=== PATIENT | male | born 1995 | race Caucasian/White ===

== ENCOUNTER 2016-12-12 22:44 | Emergency (ER) | payer BC ==
[~2016-12-12] VITALS: Ht 182.9 cm; Wt 95.2 kg
[2016-12-12 22:47] VITALS: TEMP 36.9; Ht 182.9 cm; Wt 95.2 kg
--- NOTE | 2016-12-13 00:10 | EMERGENCY ROOM VISIT NOTE ---
History Report prepared by Yana: Tony Mixon Under the Supervision of: Dr. Mary Grace Bravo D.O. First contact with patient: 23:19 Chief Complaint: MENTAL HEALTH EVALUATION Stated Complaint: DEPRESSION,OBSERVATION REQUIRED BY MISSING PERSONS History of Present Illness The patient is a 21 year old male who presents to the Emergency Room with complaints of depression. The patient complains of feeling anxious this morning after getting a bill concerning student loans. The patient notes that a few months ago he had suicidal ideation and started a note on his cell phone. The patient has been adding and editing this note for the past few months. He was feeling antsy yesterday and added more to the note. He sent a picture of the note to his mother today. The patient's mother was worried and could not get into contact with the patient and did not know where he was so she reached out to missing persons. Per patient's aunt, the patient's mother was surprised about the patient's note that mentioned suicidal ideation. She had not known about the patient's depression. The patient notes that he felt he needed to get away from people today [place] around [place] for most of the day. The patient denies medications, drug use, or recent alcohol in the past two weeks. The patient has not seen a counselor recently. Source of History: patient, family Onset: today Position: other (global) Timing: worsening, other (persistent) Note: Other associated symptoms: feeling anxious, suicidal ideation Denies: medications, drug use, or recent alcohol use Review of Systems See HPI for pertinent positives & negatives. A total of 10 systems reviewed and were otherwise negative. Past Medical & Surgical Medical Problems: (1) No pertinent past medical history Family History No pertinent family history Social History Smoking Status: Former Smoker Alcohol Use: occasionally Drug Use: none Housing Status: lives with roommate Occupation Status: student Current/Historical Medications No Active Prescriptions or Reported Meds Allergies Coded Allergies: No Known Allergies (Unverified , 12/12/16) Physical Exam Vital Signs Date Time Temp Pulse Resp B/P Pulse Ox O2 Delivery O2 Flow Rate FiO2 12/13/16 02:50 77 18 128/79 98 12/12/16 22:47 36.9 79 18 138/84 97 Room Air Physical Exam HEENT: Head - normocephalic and atraumatic Pupils are equal, round, and reactive to light. Extraocular eye muscles are intact, and sclera are anicteric. Nose - moist nasal mucosa without discharge. Mouth - moist buccal mucosa. Oropharynx is nonerythematous and there is no tonsillar exudate or edema noted. Neck: Supple; no JVD, nuchal rigidity, cervical lymphadenopathy. Heart: Regular rate and rhythm. There is a normal S1 and S2 with no murmurs, clicks, or gallops appreciated. Lungs: Clear to auscultation bilaterally with no wheezes, rales, or rhonchi. Abdomen: Soft, completely nontender, nondistended, with good bowel sounds. There are no palpable pulsatile masses or hepatosplenomegaly. There is no guarding, rigidity, or rebound noted. Extremities: No evidence of cyanosis, clubbing, or edema. There are easily palpable peripheral pulses. Skin: warm and dry with good turgor and no rashes. Skin is pale Psych: Normal affect, pleasant on exam, admits to suicidal ideation some time ago but none recently. Medical Decision & Procedures Laboratory Results 12/13/16 00:05 12/13/16 00:05 Test 12/12/16 23:11 12/13/16 00:05 Urine Opiates Screen NEG (NEG) Urine Methadone, Qualitative NEG (NEG) Urine Barbiturates NEG (NEG) Urine Phencyclidine (PCP) Level NEG (NEG) Ur Amphetamine/Methamphetamine NEG (NEG) MDMA (Ecstasy) Screen NEG (NEG) Urine Benzodiazepines Screen NEG (NEG) Urine Cocaine Metabolite NEG (NEG) Urine Marijuana (THC) NEG (NEG) Red Blood Count 4.50 M/uL (4.7-6.1) Mean Corpuscular Volume 90.7 fL (80-100) Mean Corpuscular Hemoglobin 32.2 pg (25-34) Mean Corpuscular Hemoglobin Concent 35.5 g/dl (32-36) RDW Standard Deviation 40.2 fL (36.4-46.3) RDW Coefficient of Variation 12.0 % (11.5-14.5) Mean Platelet Volume 9.7 fL (7.4-10.4) Anion Gap 5.0 mmol/L (3-11) Est Creatinine Clear Calc Drug Dose 138.7 ml/min Estimated GFR () 123.3 Estimated GFR (Non- 106.4 BUN/Creatinine Ratio 13.5 (10-20) Calcium Level 8.8 mg/dl (8.5-10.1) Total Bilirubin 0.6 mg/dl (0.2-1) Direct Bilirubin 0.1 mg/dl (0-0.2) Aspartate Amino Transf (AST/SGOT) 39 U/L (15-37) Alanine Aminotransferase (ALT/SGPT) 106 U/L (12-78) Alkaline Phosphatase 69 U/L (45-117) Total Protein 7.1 gm/dl (6.4-8.2) Albumin 4.2 gm/dl (3.4-5.0) Thyroid Stimulating Hormone (TSH) 1.960 uIu/ml (0.300-4.500) Salicylates Level < 1.7 mg/dl (2.8-20) Acetaminophen Level < 2 ug/ml (10-30) Ethyl Alcohol mg/dL < 3.0 mg/dl (0-3) Laboratory results per my review. ED Course 2354: The patient was evaluated in room A5. A complete history and physical exam was performed. Laboratory studies were drawn as above. 0005: The patient was felt to be medically cleared. At this time, the patient will be evaluated by Sepideh Wyatt. 0210: At this time, I reevaluated the patient after discussed his case with Sepideh Wyatt. It was agreed that the patient will stay with his Aunt until they go to [place] together on Thursday. The patient's aunt plans to set up outpatient counseling services when they arrive in [place]. I discussed findings and results with the patient and his aunt. They verbalized agreement of the treatment plan. The patient was discharged home. Medical Decision The patient is a 21 year old male who presents to the ED with suicidal ideation. Differential diagnosis includes mood disorder, thought disorder, or suicidal ideation. Labs reviewed by me: normal white count, normal H&H, TSH 1.9, transaminases slightly elevated AST 39 and [id number], normal renal function and glucose, Tox screen negative, tylenol aspirin and alcohol all negative. The patient has a history of depression but has not been actively treated for it. He has had previous episodes of suicidal ideation but none currently. The patient is planning to move to [place] with his aunt who accompanies him here in the emergency department. She will obtain some outpatient psychiatric services for him once they arrive in [place]. They were told to call [facility] if the patient has any worsening symptoms while the remain here in [place]. Impression Primary Impression: Depression Scribe Attestation The scribe's documentation has been prepared under my direction and personally reviewed by me in its entirety. I confirm that the note above accurately reflects all work, treatment, procedures, and medical decision making performed by me. Departure Information Dispostion Home / Self-Care Prescriptions No Active Prescriptions or Reported Meds Referrals No Doctor, Assigned (PCP) Forms HOME CARE DOCUMENTATION FORM, IMPORTANT VISIT INFORMATION Patient Instructions Depression Counseling, Depression Help Tips, My [facility] Additional Instructions You should stay with family to avoid being alone. You should seek treatment immediately if you have any thoughts of wanting to hurt yourself
[2016-12-13 00:19] LABS: HEMATOCRIT 40.8 % (42-52); MEAN CELL VOLUME 90.7 fL (80-100); MEAN CORPUSCULAR HEMOGLOBIN 32.2 pg (25-34); MEAN CORPUSCULAR HGB CONC 35.5 g/dl (32-36); MEAN PLATELET VOLUME 9.7 fL (7.4-10.4); PLATELET COUNT 221 K/uL (130-400); WHITE BLOOD COUNT 6.32 K/uL (4.8-10.8)
[2016-12-13 00:20] LABS: BENZODIAZEPINE, URINE NEG (NEG); COCAINE,URINE NEG (NEG); PHENCYCLIDINE, URINE NEG (NEG)
[2016-12-13 00:36] LABS: BUN/CREATININE RATIO 13.5 (10-20); CALCIUM 8.8 mg/dl (8.5-10.1); POTASSIUM 3.9 mmol/L (3.5-5.1)
[2016-12-13 00:47] LABS: THYROID STIMULATING HORMONE 1.96 uIu/ml (0.300-4.500)
[2016-12-13 01:00] LABS: ACETAMINOPHEN < 2 ug/ml (10-30)
[2016-12-13 02:50] VITALS: BP 128/79; PULSE 77; O2SAT 98
== END 2016-12-13 02:51 | disposition home or self-care (01) ==
LOC: C.EDB 22:46 → C.EDA 12-13 02:51
DX: F32.9 Major depressive disorder, single episode, unspecified (principal); Z87.891 Personal history of nicotine dependence